=== PATIENT | female | born 1965 | race Caucasian/White ===

== ENCOUNTER 2024-05-02 11:20 | Emergency (ER) | payer BC ==
[~2024-05-02] VITALS: Ht 162.6 cm; Wt 73.0 kg
[2024-05-02 11:24] VITALS: O2SAT 98
[2024-05-02] MEDS: LACTATED RINGERS 1,000 ML IV SCH (12:11)
[2024-05-02] MEDS: ADENOSINE 3 MG/ML 2ML VIAL IV ONE ×2 (12:11→12:13)
[2024-05-02 12:12] LABS: BASOPHILS % 0.7 % (0.0-2.0); EOSINOPHILS % 0.2 % (0.0-5.0); HEMATOCRIT. 40.3 % (36.0-48.0); HEMOGLOBIN. 13.5 g/dL (12.0-16.0); LYMPHOCYTES % 25.7 % (20.0-50.0); MEAN CORPUSCULAR HEMOGLOBIN 28.9 pg (28.0-32.0); MEAN CORPUSCULAR HGB CONC 33.5 g/dL (31.0-37.0); MEAN CORPUSCULAR VOLUME 86.2 fL (81.0-99.0); MEAN PLATELET VOLUME 9.2 fl (7.4-10.4); MONOCYTES % 12.3 % (2.0-8.0); NEUTROPHILS % 61.1 % (40.0-76.0); PLATELET 297 x1000/uL (130-400); RED BLOOD CELL COUNT 4.68 mill/uL (4.2-5.4); RED CELL DISTRIBUTION WIDTH 14.3 % (11.6-14.6); WHITE BLOOD COUNT 8.3 x1000/uL (4.5-11.0)
[2024-05-02 12:26] LABS: CHLORIDE 104 mEq/L (98-107); POTASSIUM 3.2 mEq/L (3.5-5.1); SODIUM 138 mEq/L (136-145)
[2024-05-02 12:27] LABS: CALCIUM 9.8 mg/dL (8.7-10.4); CARBON DIOXIDE 21 mEq/L (21-32)
[2024-05-02] MEDS: METOPROLOL TARTRATE 5MG/5ML VIAL IV ONE ×2 (12:29→12:46)
[2024-05-02 12:32] LABS: CREATININE 0.9 mg/dL (0.6-1.0); GLUCOSE 145 mg/dL (70-105); TROPONIN I HIGH SENSITIVITY 12 ng/L (3.0-34)
[2024-05-02 12:33] LABS: UREA NITROGEN BLOOD 9 mg/dL (9-23)
[2024-05-02 12:34] LABS: ACETAMINOPHEN < 2 ug/mL (10-30); ALANINE AMINOTRANSFERASE 18 IU/L (10-49); ALBUMIN 4.7 g/dL (3.2-4.8); ASPARTATE AMINOTRANSFERASE 22 IU/L (<34)
[2024-05-02 12:35] LABS: BILIRUBIN DIRECT 0.1 mg/dL (<=3.0); BILIRUBIN TOTAL 0.4 mg/dL (0.1-1.0); PROTEIN TOTAL 7.5 g/dL (6.0-8.3)
[2024-05-02 12:41] LABS: ETHANOL BLOOD < 10 mg/dL (<10)
[2024-05-02] MEDS: METOPROLOL TARTRATE 50MG TABLET PO ONE (12:56)
[2024-05-02] MEDS: POTASSIUM CHLORIDE 20MEQ/PACKET PO ONE (13:42)
[2024-05-02] MEDS ORDERED: LORAZEPAM 2MG/ML INJ IV PRN (14:15)
[2024-05-02] MEDS ORDERED: ONDANSETRON HCL 4MG/2ML INJ IV PRN (14:15)
[2024-05-02 14:30] LABS: CLARITY URINE CLEAR (CLEAR); COLOR URINE YELLOW (YELLOW); GLUCOSE URINE NEGATIVE (NEGATIVE); KETONES URINE 1+ (NEGATIVE); LEUKOCYTE ESTERASE URINE NEGATIVE (NEGATIVE); NITRITE URINE NEGATIVE (NEGATIVE); OCCULT BLOOD URINE NEGATIVE (NEGATIVE); PH URINE 7.5 (4.5-8.0); PROTEIN URINE TRACE (NEGATIVE); SPECIFIC GRAVITY URINE 1.009 (1.005-1.030); UROBILINOGEN URINE 0.2 E.U./dL (0.2-1.0)
[2024-05-02 14:45] VITALS: BP 133/91; RESP 18; TEMP 36.7; O2SAT 100
[2024-05-02 14:46] VITALS: PULSE 100
[2024-05-02 14:46] LABS: BACTERIA URINE 1+; RBC URINE 0-2 /hpf (0-2); SQUAMOUS EPITHELIAL CELL URINE 1+ /lpf (RARE/1+); WBC URINE 0-2 /hpf (0-2); YEAST URINE NONE SEEN
[2024-05-02] MEDS: METOPROLOL TARTRATE 50MG TABLET PO NR (14:46)
[2024-05-02 14:52] LABS: *AMPHETAMINES SCREEN URINE NEGATIVE (NEGATIVE)
[2024-05-02 14:53] LABS: *BARBITURATES SCREEN URINE NEGATIVE (NEGATIVE); *BENZODIAZEPINES SCREEN URINE NEGATIVE (NEGATIVE); *COCAINE SCREEN URINE NEGATIVE (NEGATIVE); CANNABINOID URINE SCREEN NEGATIVE (NEGATIVE); ECSTASY MDMA SCREEN URINE NEGATIVE (NEGATIVE); METHADONE URINE SCREEN NEGATIVE (NEGATIVE); OPIATES URINE SCREEN NEGATIVE (NEGATIVE); PHENCYCLIDINE URINE SCREEN NEGATIVE (NEGATIVE)
[2024-05-02] MEDS ORDERED: METOPROLOL TARTRATE 50MG TABLET PO SCH (21:00)
[2024-05-02] MEDS ORDERED: CHLORDIAZEPOXIDE 25MG CAPSULE PO SCH (22:00)
== END 2024-05-02 15:14 | disposition left against medical advice (07) ==
LOC: ER 11:31
DX: I47.10 Supraventricular tachycardia, unspecified (principal); E87.6 Hypokalemia; F17.200 Nicotine dependence, unspecified, uncomplicated; F31.9 Bipolar disorder, unspecified; F10.20 Alcohol dependence, uncomplicated; Y90.9 Presence of alcohol in blood, level not specified
CPT/HCPCS: 80076; 80305; 80048; 81003; 80307; 80329; 80320; 82962; 85025; 84484; 36415; 71045; 96361; 96374; 96375; 99291; J0153; J3490; Z7610 ×4; A4606; G0480

== ENCOUNTER 2024-05-02 15:42 | Emergency (ER) | payer BC ==
[~2024-05-02] VITALS: Ht 167.6 cm; Wt 75.0 kg
[2024-05-02 16:19] VITALS: BP 121/70; PULSE 91; RESP 18; TEMP 36.9; O2SAT 99
[2024-05-02 17:25] LABS: BASOPHILS % 0.5 % (0.0-2.0); EOSINOPHILS % 0.3 % (0.0-5.0); HEMATOCRIT. 40.5 % (36.0-48.0); HEMOGLOBIN. 13.4 g/dL (12.0-16.0); LYMPHOCYTES % 22.9 % (20.0-50.0); MEAN CORPUSCULAR HEMOGLOBIN 29.3 pg (28.0-32.0); MEAN CORPUSCULAR HGB CONC 33.1 g/dL (31.0-37.0); MEAN CORPUSCULAR VOLUME 88.5 fL (81.0-99.0); MEAN PLATELET VOLUME 9.2 fl (7.4-10.4); MONOCYTES % 10.4 % (2.0-8.0); NEUTROPHILS % 65.9 % (40.0-76.0); PLATELET 322 x1000/uL (130-400); RED BLOOD CELL COUNT 4.57 mill/uL (4.2-5.4); RED CELL DISTRIBUTION WIDTH 14.2 % (11.6-14.6)
[2024-05-02 17:35] LABS: CHLORIDE 106 mEq/L (98-107); POTASSIUM 4.5 mEq/L (3.5-5.1); SODIUM 140 mEq/L (136-145)
[2024-05-02 17:36] LABS: CARBON DIOXIDE 25 mEq/L (21-32)
[2024-05-02 17:37] LABS: CALCIUM 9.9 mg/dL (8.7-10.4); INR 0.9; PARTIAL THROMBOPLASTIN TIME 31.9 sec (23.4-31.0); PROTHROMBIN TIME 10.6 sec (9.6-11.0)
[2024-05-02 17:41] LABS: CREATININE 0.9 mg/dL (0.6-1.0); GLUCOSE 101 mg/dL (70-105)
[2024-05-02 17:42] LABS: UREA NITROGEN BLOOD 8 mg/dL (9-23)
[2024-05-02 17:43] LABS: TROPONIN I HIGH SENSITIVITY 16 ng/L (3.0-34)
== END 2024-05-02 16:50 | disposition left against medical advice (07) ==
LOC: ER 15:42
DX: R00.0 Tachycardia, unspecified (principal); Z53.21 Procedure and treatment not carried out due to patient leaving prior to being seen by health care provider
CPT/HCPCS: 36415; 71045; 80048; 84484; 85025; 93005